=== PATIENT | female | born 1965 | race Caucasian/White ===

== ENCOUNTER 2021-07-27 08:00 | Outpatient (CLI) | payer OTHER ==
--- NOTE | 2021-07-27 12:49 | XRAY Report ---
PROCEDURE: Ankle 3 View RT INDICATIONS: SPRAIN OF RIGHT ANKLE TECHNIQUE: 3 views of the ankle were acquired. COMPARISON: None FINDINGS: Bones: Distal fibula fracture at the level of the syndesmosis. No significant displacement. No disloc ation. Ankle mortise is normally aligned. No suspicious bony lesions. Soft tissues: Soft tissue swelling at the lateral malleolus. No tibiotalar joint effusion. Achilles tendon appears normal. IMPRESSION: Distal fibula fracture at the level of the syndesmosis. Nicolas Holland Reviewed by: Oren Palomo MD on 07/27/2021 11:47 AM LEXIE Approved by: Oren Palomo MD on 07/27/2021 11:47 AM LEXIE Station ID: [id number]
== END 2021-07-27 23:59 ==
LOC: DI.S 08:00
PROVIDERS: ATTEND Emergency Medicine
DX: S82.831A Other fracture of upper and lower end of right fibula, initial encounter for closed fracture (principal)